=== PATIENT | female | born 2000 | race Caucasian/White ===

== ENCOUNTER 2018-01-05 10:05 | Observation (INO) | payer BC ==
[2018-01-05] MEDS ORDERED: VANCOMYCIN 1 GM 250 ML IVPB (12:00)
[2018-01-05] MEDS: LACTATED RINGER'S 1,000 ML IV* (12:00)
[2018-01-05] MEDS ORDERED: MIDAZOLAM 1 MG/ML 2 ML INJ (12:29)
[2018-01-05] MEDS: BUPIVACAINE 0.25%/EPI (SDV) 30 ML INJ (13:33)
[2018-01-05] MEDS: BACITRACIN 50000 UNITS INJ (13:33)
[2018-01-05] MEDS: THROMBIN 5000 UNIT VIAL (13:34)
[2018-01-05] MEDS: HEMOSTATIC MATRIX SYG ZFS (14:50)
[2018-01-05] MEDS ORDERED: CEFAZOLIN 1 GM INJ (16:07)
[2018-01-05] MEDS ORDERED: ONDANSETRON 4 MG INJ (16:07)
[2018-01-05] MEDS ORDERED: NEOSTIGMINE 3 MG/3 ML SYRINGE (16:07)
[2018-01-05] MEDS ORDERED: LIDOCAINE 2% (SDV) 5 ML INJ (16:07)
[2018-01-05] MEDS ORDERED: ROCURONIUM 50 MG INJ (16:07)
[2018-01-05] MEDS ORDERED: PROPOFOL 20 ML (16:07)
[2018-01-05] MEDS ORDERED: GLYCOPYRROLATE 0.4 MG INJ (16:07)
[2018-01-05] MEDS ORDERED: ONDANSETRON 4 MG INJ IV ×2 (16:30→17:00)
[2018-01-05] MEDS ORDERED: NALOXONE (0.4 MG/ML) INJ IV (16:30)
[2018-01-05] MEDS ORDERED: HYDROmorphONE 0.2 MG/ML PCA IV (16:30)
[2018-01-05] MEDS ORDERED: NACL 0.9% 3 ML SYG IV (16:30)
[2018-01-05] MEDS ORDERED: PROCHLORPERAZINE 10 MG TAB PO (16:30)
[2018-01-05] MEDS ORDERED: FENTAnyl 50 MCG/ML VIAL (16:36)
[2018-01-05] MEDS ORDERED: HYDROmorphONE 1 MG/5 ML IV SYRINGE IV (17:00)
[2018-01-05] MEDS ORDERED: LORAZEPAM 2 MG INJ IV (17:00)
[2018-01-05] MEDS ORDERED: FENTAnyl 50 MCG/ML VIAL IV (17:00)
[2018-01-05] MEDS ORDERED: MEPERIDINE 25 MG INJ IV (17:00)
[2018-01-05] MEDS ORDERED: DIPHENHYDRAMINE 50 MG INJ IV (17:00)
[2018-01-05] MEDS: HYDROmorphONE 1 MG/5 ML IV SYRINGE IV (17:16)
[2018-01-05] MEDS: HYDROmorphONE 0.5 MG/0.5 ML SYG IV ×2 (18:30→21:31)
[2018-01-05] MEDS: CEFAZOLIN 1 GM/50 ML (PMX) 50 ML IVPB (18:31)
[2018-01-05] MEDS: ARTIFICIAL TEARS 15 ML OPH BOTH EYES (18:57)
[2018-01-05] MEDS: HYDROCODONE/APAP (5/325) TAB PO ×2 (19:58→23:58)
[2018-01-06] MEDS: HYDROmorphONE 0.5 MG/0.5 ML SYG IV ×4 (00:33→13:46)
[2018-01-06] MEDS: HYDROCODONE/APAP (5/325) TAB PO ×4 (04:03→17:01)
[2018-01-06 05:06] LABS: HEMATOCRIT 32.8 % (37.0-47.0); HEMOGLOBIN 10.6 g/dl (12.0-16.0)
[2018-01-06 05:46] LABS: ANION GAP 8 (5-13); BLOOD UREA NITROGEN 9 mg/dl (7-20); CALCIUM 8.6 mg/dl (8.4-10.2); CARBON DIOXIDE 28 mmol/L (21-31); CHLORIDE 103 mmol/L (97-110); CREATININE 0.61 mg/dl (0.44-1.00); Estimated GFR > 60 mL/min (>60); GLUCOSE 102 mg/dl (70-220); SODIUM 139 mmol/L (135-144)
[2018-01-06] MEDS: CEFAZOLIN 1 GM/50 ML (PMX) 50 ML IVPB ×3 (06:37→11:58)
[2018-01-06] MEDS: DOCUSATE SODIUM 100 MG CAP PO (08:10)
== END 2018-01-06 17:20 | disposition home or self-care (01) ==
LOC: SUR 10:05 → SDS 10:05 → SUR 16:20 → REC 16:30 → MS1 17:40
DX: M48.062 Spinal stenosis, lumbar region with neurogenic claudication (principal); M51.16 Intervertebral disc disorders with radiculopathy, lumbar region
CPT/HCPCS: 63030; 72100; 80048; 84703; 85014; 85018; 88304; 97110; 97116; 97161; 99217